=== PATIENT | female | born 1995 | race Hispanic/Latino ===

== ENCOUNTER 2019-06-20 12:24 | Emergency (ER) | payer SELFPAY | END 2019-06-20 13:02 | disposition home or self-care (01) | LOC: EDH 12:24 | DX: H00.011 Hordeolum externum right upper eyelid (principal) | CPT/HCPCS: 99281 ==

== ENCOUNTER 2020-07-13 13:23 | Emergency (ER) | payer OTHER ==
[2020-07-13 14:03] LABS: APPEARANCE,URINE Clear (CLEAR); BILIRUBIN,URINE Negative (NEGATIVE); COLOR,URINE Yellow (YELLOW); GLUCOSE, URINE (UA) Negative (NEGATIVE); KETONES,URINE Negative (NEGATIVE); LEUKOCYTE ESTERASE ,URINE Small (NEGATIVE); NITRATE,URINE Negative (NEGATIVE); OCCULT BLOOD,URINE Negative (NEGATIVE); PROTEIN,URINE Negative (NEGATIVE); UROBILINOGEN,URINE 0.2 mg/dL (0.2-1.0)
[2020-07-13 14:06] LABS: HCG,QUAL RESULT NEGATIVE (NEGATIVE)
[2020-07-13 14:16] LABS: BACTERIA,URINE Moderate /HPF (None Seen); RBC,URINE 0-1 /HPF (0-1)
[2020-07-13] MEDS ORDERED: KETOROLAC TROMETHAMINE 60 MG/2 ML VIAL ONE (14:16)
[2020-07-13 14:17] LABS: SQUAMOUS EPITHELIAL CELL,UR 0-2 /HPF (0-2)
[2020-07-13] MEDS ORDERED: HYDROCODONE/ACETAMINOPHEN 10/325 MG TAB ONE (14:17)
== END 2020-07-13 15:22 | disposition home or self-care (01) ==
LOC: EDH 13:23
DX: S23.3XXA Sprain of ligaments of thoracic spine, initial encounter (principal); M54.5 Low back pain; X50.0XXA Overexertion from strenuous movement or load, initial encounter; Y93.89 Activity, other specified; Y92.89 Other specified places as the place of occurrence of the external cause; Y99.8 Other external cause status
CPT/HCPCS: 81001; 81025; 87077; 87088; 87186; 96372; 99283; J1885